=== PATIENT | male | born 1980 | race African-American/Black ===

== ENCOUNTER 2020-12-02 09:34 | Emergency (ER) | payer BC ==
[2020-12-02] MEDS ORDERED: Ondansetron PF 4 MG/2 ML Vial ONE (10:42)
[2020-12-02 11:00] LABS: #Basophils 0.1 10x3/uL (0.0-0.2); #Eosinphils 0.2 10x3/uL (0.0-0.5); #Monocytes 0.8 10x3/uL (0.0-1.1); #Neutrophils 12.4 10x3/uL (1.5-8.4); %Basophils 0.4 % (0.0-2.0); %Eosinophils 1.1 % (0.0-6.0); %Lymphocytes 12.1 % (18.0-47.0); %Monocytes 5.1 % (0.0-10.0); Mean Platelet Volume 9.6 fl (7.4-10.4); Platelet Count 300 10x3/uL (150-450); RBC Distribution Width 12.6 % (11.5-14.5); Red Blood Cell (RBC) Count 4.33 10x6/uL (4.32-5.72); White Blood Cell (WBC) Count 15.3 10x3/uL (3.5-10.5)
[2020-12-02 11:20] LABS: ALT (SGPT) 29 U/L (8-55); AST (SGOT) 21 U/L (5-34); Albumin 4.2 g/dL (3.5-5.0); Alkaline Phosphatase 77 U/L (40-110); Anion Gap 15 mmol/L (10-20); BUN (Urea Nitrogen) 10 mg/dL (8.9-20.6); Bilirubin, Total 0.5 mg/dL (0.2-1.2); Calc. Creatinine Clearance 0 mL/min (70-130); Calcium 8.9 mg/dL (7.8-10.44); Carbon Dioxide 26 mmol/L (22-29); Chloride 101 mmol/L (98-107); Globulin 3.5 g/dL (2.4-3.5); Glucose 291 mg/dL (70-105); Lipase 31 U/L (8-78); Potassium 3.7 mmol/L (3.5-5.1); Protein, Total 7.7 g/dL (6.0-8.3); Sodium 138 mmol/L (136-145)
[2020-12-02] MEDS ORDERED: hydrALAZINE 20 MG/ML VIAL ONE (11:35)
== END 2020-12-02 13:12 | disposition home or self-care (01) ==
LOC: CSHERS 09:34
DX: K29.70 Gastritis, unspecified, without bleeding (principal); I10 Essential (primary) hypertension; E78.5 Hyperlipidemia, unspecified; E11.9 Type 2 diabetes mellitus without complications; Z79.899 Other long term (current) drug therapy
CPT/HCPCS: 80053; 83690; 85025; 96374; 96375; J0360; J2405

== ENCOUNTER 2020-12-05 17:08 | Inpatient (IN) | payer BC ==
[2020-12-05 18:33] LABS: #Basophils 0.1 10x3/uL (0.0-0.2); #Eosinphils 0.1 10x3/uL (0.0-0.5); #Monocytes 1.3 10x3/uL (0.0-1.1); #Neutrophils 12.1 10x3/uL (1.5-8.4); %Basophils 0.4 % (0.0-2.0); %Eosinophils 0.3 % (0.0-6.0); %Lymphocytes 12.9 % (18.0-47.0); %Monocytes 8.4 % (0.0-10.0); %Neutrophils 77.4 % (40.0-75.0); Hemoglobin 15.2 g/dL (13.5-17.5); Mean Corpuscular HGB CONC 34.5 g/dL (32.0-36.0); Mean Corpuscular Hemoglobin 30.4 pg (27.0-33.0); Mean Corpuscular Volume 88.2 fl (81.2-95.1); Mean Platelet Volume 9.3 fl (7.4-10.4); Platelet Count 341 10x3/uL (150-450); RBC Distribution Width 12.4 % (11.5-14.5); White Blood Cell (WBC) Count 15.7 10x3/uL (3.5-10.5)
[2020-12-05] MEDS ORDERED: Ondansetron PF 4 MG/2 ML Vial ONE (18:34)
[2020-12-05 18:45] LABS: ALT (SGPT) 19 U/L (8-55); AST (SGOT) 13 U/L (5-34); Albumin 4.2 g/dL (3.5-5.0); Alkaline Phosphatase 72 U/L (40-110); Anion Gap 13 mmol/L (10-20); BUN (Urea Nitrogen) 17 mg/dL (8.9-20.6); Bilirubin, Total 0.6 mg/dL (0.2-1.2); Calc. Creatinine Clearance 0 mL/min (70-130); Calcium 9.6 mg/dL (7.8-10.44); Carbon Dioxide 29 mmol/L (22-29); Chloride 91 mmol/L (98-107); Globulin 3.5 g/dL (2.4-3.5); Glucose 179 mg/dL (70-105); Lipase 18 U/L (8-78); Potassium 3.3 mmol/L (3.5-5.1); Protein, Total 7.7 g/dL (6.0-8.3); Sodium 130 mmol/L (136-145)
[2020-12-05] MEDS ORDERED: Potassium Chloride 20 MEQ TAB ONE (19:26)
[2020-12-05] MEDS ORDERED: Acetaminophen 325 MG TAB PO PRN (21:30)
[2020-12-05] MEDS ORDERED: Dextrose 5% in Water 1,000 ML IV PRN (21:30)
[2020-12-05] MEDS ORDERED: Dextrose 50% Abboject 50 ML SYRINGE SLOW IVP PRN (21:30)
[2020-12-05] MEDS ORDERED: Ondansetron PF 4 MG/2 ML Vial IVP PRN (21:30)
[2020-12-05] MEDS ORDERED: HumaLOG 300 UNITS/3 ML VIAL SC PRN (21:30)
[2020-12-05] MEDS ORDERED: Calcium Carbonate 500 MG ChewTAB PO PRN (21:30)
[2020-12-05] MEDS ORDERED: HYDROcodone/Acetaminophen 5/325 mg Tablet PO PRN (21:30)
[2020-12-05] MEDS ORDERED: Pantoprazole 40 MG VIAL IVP SCH (21:45)
[2020-12-05] MEDS ORDERED: Pantoprazole 40 MG VIAL ONE (22:27)
[2020-12-05] MEDS: NS 0.9% w/ 40 MEQ KCL 1,000 ML IV SCH (22:47)
[2020-12-06 00:28] LABS: SARS-CoV-2 NAA Rapid Test Not Detected (NotDetected)
[2020-12-06 00:40] LABS: Bilirubin Neg (Negative); Blood, Urine Negative (Negative); Clarity Clear (Clear); Glucose, Urine (Dipstick) 50 mg/dL (Negative); Ketone, Urine 50 mg/dL (Negative); Leukocyte Negative (Negative); Nitrite Negative (Negative); Protein, Urine (Dipstick) Negative (Neg-Trace); Specific Gravity, Urine 1.015 (1.002-1.036); Urobilinogen Normal mg/dL (Less than 2)
[2020-12-06 00:42] LABS: Urine Culture Reflex No No
[2020-12-06 00:48] VITALS: BMI 22.8
[2020-12-06 00:59] LABS: Bacteria/HPF Rare-Few HPF (None Seen); RBC/HPF 0-3 HPF (0-3); Squamous Epithelial 0-3 HPF (0-3); WBC/HPF 0-3 HPF (0-3)
[2020-12-06 05:51] LABS: #Basophils 0.1 10x3/uL (0.0-0.2); #Eosinphils 0.1 10x3/uL (0.0-0.5); #Monocytes 1.6 10x3/uL (0.0-1.1); %Basophils 0.5 % (0.0-2.0); %Eosinophils 1.1 % (0.0-6.0); %Lymphocytes 20.9 % (18.0-47.0); %Monocytes 12.6 % (0.0-10.0); %Neutrophils 64.5 % (40.0-75.0); Hemoglobin 13.1 g/dL (13.5-17.5); Mean Corpuscular HGB CONC 33.8 g/dL (32.0-36.0); Mean Corpuscular Volume 88.8 fl (81.2-95.1); Mean Platelet Volume 9.6 fl (7.4-10.4); Platelet Count 294 10x3/uL (150-450); RBC Distribution Width 12.2 % (11.5-14.5); Red Blood Cell (RBC) Count 4.37 10x6/uL (4.32-5.72); White Blood Cell (WBC) Count 12.4 10x3/uL (3.5-10.5)
[2020-12-06 05:53] LABS: ALT (SGPT) 16 U/L (8-55); AST (SGOT) 14 U/L (5-34); Albumin 3.5 g/dL (3.5-5.0); Alkaline Phosphatase 59 U/L (40-110); Anion Gap 12 mmol/L (10-20); BUN (Urea Nitrogen) 13 mg/dL (8.9-20.6); Bilirubin, Total 0.6 mg/dL (0.2-1.2); Calc. Creatinine Clearance 113 mL/min (70-130); Calcium 8.7 mg/dL (7.8-10.44); Carbon Dioxide 29 mmol/L (22-29); Chloride 97 mmol/L (98-107); Globulin 3.1 g/dL (2.4-3.5); Glucose 103 mg/dL (70-105); Magnesium 1.8 mg/dL (1.6-2.6); Potassium 3.5 mmol/L (3.5-5.1); Protein, Total 6.6 g/dL (6.0-8.3); Sodium 134 mmol/L (136-145)
[2020-12-06] MEDS ORDERED: Loperamide HCl 2 MG CAP PO PRN (07:55)
[2020-12-06] MEDS ORDERED: Senokot S 8.6-50 MG TAB PO PRN (07:55)
[2020-12-06] MEDS ORDERED: Loratadine 10 MG TAB PO PRN (07:55)
[2020-12-06] MEDS ORDERED: Cepastat Lozenges 1 LOZ PO PRN (07:55)
[2020-12-06] MEDS ORDERED: Sodium Chloride 0.65% Nasal 44 ML BOT EA NARE PRN (07:55)
[2020-12-06] MEDS ORDERED: Ondansetron ODT 4 MG TAB PO PRN (07:55)
[2020-12-06] MEDS ORDERED: Bisacodyl 5 MG TAB PO PRN (07:55)
[2020-12-06] MEDS ORDERED: Benzonatate 100 MG CAP PO PRN (07:55)
[2020-12-06] MEDS ORDERED: hydrALAZINE 20 MG/ML VIAL SLOW IVP PRN (07:55)
[2020-12-06] MEDS ORDERED: GUAIFENESIN SF SOLN 200 MG/10 ML UDCUP PO PRN (07:55)
[2020-12-06] MEDS ORDERED: Zolpidem Tartrate 5 MG TAB PO PRN (07:55)
[2020-12-06] MEDS: NS 0.9% w/ 40 MEQ KCL 1,000 ML IV SCH ×3 (07:56→20:49)
[2020-12-06] MEDS: hydrALAZINE 25 MG TAB PO SCH ×3 (08:00→20:25)
[2020-12-06] MEDS: Amlodipine 10 MG TAB PO SCH (08:00)
[2020-12-06] MEDS: Spironolactone 25 MG TAB PO SCH (08:00)
[2020-12-06] MEDS: Lisinopril 20 MG TAB PO SCH (09:00)
[2020-12-06] MEDS ORDERED: FLU VACC QS2020-21(6MOS UP)/PF 60 MCG/0.5 ML SYRINGE IM ONE (09:00)
[2020-12-06] MEDS: Bupropion 150 MG XL TAB PO SCH (09:00)
[2020-12-06] MEDS: Metoprolol Tartrate 50 MG TAB PO SCH ×2 (09:00→20:25)
[2020-12-06] MEDS: Pantoprazole 40 MG VIAL IVP SCH ×2 (10:57→20:27)
[2020-12-06] MEDS: Atorvastatin Calcium 40 MG TAB PO SCH (20:25)
[2020-12-06] MEDS: Enoxaparin Sodium 40 MG/0.4 ML SYRINGE SC SCH (20:51)
[2020-12-07 06:09] LABS: #Basophils 0.1 10x3/uL (0.0-0.2); #Eosinphils 0.2 10x3/uL (0.0-0.5); #Neutrophils 6.3 10x3/uL (1.5-8.4); %Basophils 0.6 % (0.0-2.0); %Lymphocytes 20.1 % (18.0-47.0); %Monocytes 10.7 % (0.0-10.0); %Neutrophils 66.3 % (40.0-75.0); Hemoglobin 11.9 g/dL (13.5-17.5); Mean Corpuscular HGB CONC 33.7 g/dL (32.0-36.0); Mean Corpuscular Volume 88.9 fl (81.2-95.1); Mean Platelet Volume 9.6 fl (7.4-10.4); Platelet Count 246 10x3/uL (150-450); RBC Distribution Width 12.3 % (11.5-14.5); Red Blood Cell (RBC) Count 3.97 10x6/uL (4.32-5.72); White Blood Cell (WBC) Count 9.6 10x3/uL (3.5-10.5)
[2020-12-07] MEDS: NS 0.9% w/ 40 MEQ KCL 1,000 ML IV SCH ×2 (08:56→19:02)
[2020-12-07] MEDS: hydrALAZINE 25 MG TAB PO SCH ×3 (08:58→20:30)
[2020-12-07] MEDS: Metoprolol Tartrate 50 MG TAB PO SCH ×2 (08:59→21:13)
[2020-12-07] MEDS: Bupropion 150 MG XL TAB PO SCH (08:59)
[2020-12-07] MEDS: Amlodipine 10 MG TAB PO SCH (08:59)
[2020-12-07] MEDS: Lisinopril 20 MG TAB PO SCH (08:59)
[2020-12-07] MEDS: Spironolactone 25 MG TAB PO SCH (11:24)
[2020-12-07] MEDS: Pantoprazole 40 MG VIAL IVP SCH ×2 (11:24→21:17)
[2020-12-07] MEDS ORDERED: INSULIN GLARGINE HUM REC ANLOG SQ SCH (21:00)
[2020-12-07] MEDS ORDERED: [UNRECOGNIZED DRUG - OTHER] SQ SCH (21:00)
[2020-12-07] MEDS: Atorvastatin Calcium 40 MG TAB PO SCH (21:13)
[2020-12-07] MEDS: Enoxaparin Sodium 40 MG/0.4 ML SYRINGE SC SCH (21:14)
[2020-12-08 08:22] LABS: Anion Gap 11 mmol/L (10-20); BUN (Urea Nitrogen) 9 mg/dL (8.9-20.6); Calc. Creatinine Clearance 114 mL/min (70-130); Carbon Dioxide 28 mmol/L (22-29); Chloride 102 mmol/L (98-107); Glucose 146 mg/dL (70-105); Sodium 137 mmol/L (136-145)
[2020-12-08 08:27] VITALS: TEMP 98.3
[2020-12-08 08:40] LABS: #Basophils 0.1 10x3/uL (0.0-0.2); #Eosinphils 0.3 10x3/uL (0.0-0.5); #Monocytes 1.2 10x3/uL (0.0-1.1); #Neutrophils 6.9 10x3/uL (1.5-8.4); %Basophils 0.5 % (0.0-2.0); %Eosinophils 3.3 % (0.0-6.0); %Lymphocytes 18.4 % (18.0-47.0); %Monocytes 11.1 % (0.0-10.0); %Neutrophils 66.5 % (40.0-75.0); Hemoglobin 12.5 g/dL (13.5-17.5); Mean Corpuscular HGB CONC 34.1 g/dL (32.0-36.0); Mean Corpuscular Hemoglobin 30.3 pg (27.0-33.0); Mean Corpuscular Volume 89.1 fl (81.2-95.1); Mean Platelet Volume 9.6 fl (7.4-10.4); Platelet Count 282 10x3/uL (150-450); RBC Distribution Width 12.3 % (11.5-14.5); Red Blood Cell (RBC) Count 4.12 10x6/uL (4.32-5.72); White Blood Cell (WBC) Count 10.4 10x3/uL (3.5-10.5)
[2020-12-08] MEDS ORDERED: Pantoprazole 40 MG VIAL ONE (09:03)
[2020-12-08] MEDS: hydrALAZINE 25 MG TAB PO SCH (10:50)
[2020-12-08] MEDS: Spironolactone 25 MG TAB PO SCH (10:50)
[2020-12-08] MEDS: Bupropion 150 MG XL TAB PO SCH (10:50)
[2020-12-08] MEDS: Amlodipine 10 MG TAB PO SCH (10:50)
[2020-12-08 10:51] VITALS: BP 149/92
[2020-12-08] MEDS: Lisinopril 20 MG TAB PO SCH (10:51)
[2020-12-08] MEDS: Pantoprazole 40 MG VIAL IVP SCH (10:51)
[2020-12-08] MEDS: Metoprolol Tartrate 50 MG TAB PO SCH (10:51)
== END 2020-12-08 11:13 | disposition home or self-care (01) | DRG 375 ==
LOC: CSHERS 17:08 → CSHTELE 21:54
PROVIDERS: ADMIT Student in an Organized Health Care Education/Training Program; ATTEND Family Medicine
PROC: 0DB68ZX Excision of Stomach, Via Natural or Artificial Opening Endoscopic, Diagnostic (ICD-10-PCS; principal; 2020-12-06)
DX: C16.2 Malignant neoplasm of body of stomach (principal); C79.89 Secondary malignant neoplasm of other specified sites; E87.0 Hyperosmolality and hypernatremia; E87.6 Hypokalemia; Z20.822 Contact with and (suspected) exposure to COVID-19; E78.5 Hyperlipidemia, unspecified; I10 Essential (primary) hypertension; Z83.3 Family history of diabetes mellitus; Z82.49 Family history of ischemic heart disease and other diseases of the circulatory system; Z79.84 Long term (current) use of oral hypoglycemic drugs; Z79.899 Other long term (current) drug therapy; Z87.891 Personal history of nicotine dependence; E11.22 Type 2 diabetes mellitus with diabetic chronic kidney disease; E11.65 Type 2 diabetes mellitus with hyperglycemia; I12.9 Hypertensive chronic kidney disease with stage 1 through stage 4 chronic kidney disease, or unspecified chronic kidney disease; N18.2 Chronic kidney disease, stage 2 (mild); D72.829 Elevated white blood cell count, unspecified; I16.0 Hypertensive urgency; K29.70 Gastritis, unspecified, without bleeding
CPT/HCPCS: 36416; 74177; 80048; 80053; 81001; 83690; 83735; 85025; 88305; 93005; 96361; 96374; 96375; C9113; J0360; J1650; J1815; J2405; J3480; U0002